=== PATIENT | female | born 1985 | race Caucasian/White ===

== ENCOUNTER 2023-07-21 22:08 | Emergency (ER) | payer OTHER, SELFPAY ==
[2023-07-21 22:13] VITALS: BP 152/99; PULSE 86; TEMP 36.6; O2SAT 98; BMI 38.3
--- NOTE | 2023-07-21 22:30 | ED.PSYCH1 ---
HPI - Psych General Chief Complaint: Psychiatric Symptoms Stated Complaint: SI Time Seen by Provider: 07/21/23 22:20 Source: Reports patient Mode of arrival: walk-in Limitations: Reports no limitations History of Present Illness HPI Narrative: past history of depression. No support at home. Suicidal tonight. plan to either shoot herself or overdose on pills. States she called tonight before she harmed herself. Drove herself to the ER MD complaint: suicidal ideation Related Data Home Medications ?Medication ?Instructions ?Recorded ?Confirmed clonazepam 1 mg tablet mg 07/21/23 escitalopram oxalate 20 mg tablet mg 07/21/23 lamotrigine 150 mg tablet mg 07/21/23 lamotrigine 200 mg tablet mg 07/21/23 quetiapine 400 mg tablet mg 07/21/23 quetiapine 50 mg tablet mg 07/21/23 Allergies Allergy/AdvReac Type Severity Reaction Status Date / Time amoxicillin [From Augmentin] Allergy Mild Rash Verified 07/21/23 22:21 clavulanic acid Allergy Mild Rash Verified 07/21/23 22:21 [From Augmentin] Review of Systems ROS Status of ROS 10 or more systems reviewed and unremarkable except as noted in history and below Exam Constitutional Vital Signs, click to edit/add: Last Vital Signs Temp 98 F 07/22/23 04:45 Pulse 72 07/22/23 04:45 Resp 15 07/22/23 04:45 BP 142/80 H 07/22/23 04:45 Pulse Ox 98 07/22/23 04:45 O2 Del Method Room Air 07/21/23 22:13 Common normals: no apparent distress, average body habitus, oriented x3, no limitations, healthy appearing, alert and well nourished [facility] Common normals: normocephalic and head/scalp atraumatic Eye Common normals: PERRL, EOMs intact bilaterally and conjunctivae normal Respiratory Common normals: normal respiratory effort, no retractions, no use of accessory muscles and clear to auscultation bilaterally Cardio Common normals: regular rate, regular rhythm and S1 normal heart sound GI Common normals: Normal to inspection, nondistended, normoactive bowel sounds present, soft to palpation and non-tender Extremity Common normals: normal to inspection and full ROM Neuro Common normals: oriented x3, CN's II-XII intact bilaterally, moves all extremities and no focal motor deficits Psych Appearance: grossly normal Course Vital Signs Vital signs: Vital Signs Temperature 97.8 F 07/21/23 22:13 Pulse Rate 86 07/21/23 22:13 Respiratory Rate 18 07/21/23 22:13 Blood Pressure 152/99 H 07/21/23 22:13 Pulse Oximetry 98 07/21/23 22:13 Oxygen Delivery Method Room Air 07/21/23 22:13 Temperature 98 F 07/22/23 04:45 Pulse Rate 72 07/22/23 04:45 Respiratory Rate 15 07/22/23 04:45 Blood Pressure 142/80 H 07/22/23 04:45 Pulse Oximetry 98 07/22/23 04:45 Oxygen Delivery Method Room Air 07/21/23 22:13 MDM - Psych MDM Narrative Medical decision making narrative: patient presents with suicidal ideation of either overdosing on pills or shooting herself with a gun. Volunteering for admission. Was released from inpatient psychiatry last week but does not feel she is any better and apparently does not have support system at home. Denies any attempt to harm herself before driving herself to the hospital. Labs reveal mild renal insufficiency . has elevated WBC at 14 but no sign of infection and she is afebrile with normal vital signs. Discussed with psychiatrist and patient accepted and waiting for a bed Lab Data Labs: Lab Results 07/21/23 07/21/23 Range/Units 22:42 23:05 WBC 14.1 H (4.0-11.0) 10^3/uL RBC 4.17 L (4.20-5.40) 10^6/uL Hgb 12.2 (12.0-16.0) g/dL Hct 37.6 (36.0-48.0) % MCV 90.2 (81.0-99.0) fL MCH 29.3 (26.7-34.0) pg MCHC 32.4 (29.9-35.2) g/dL RDW 13.5 (11.0-15.0) % Plt Count 257 (150-450) 10^3/uL MPV 10.4 (9.5-13.5) fL Neut % (Auto) 70.2 (43.0-75.0) % Lymph % (Auto) 22.1 (20.5-60.0) % [place] % (Auto) 4.1 (1.7-12.0) % Eos % (Auto) 2.2 (0.9-7.0) % Baso % (Auto) 0.6 (0.2-2.0) % Neut # (Auto) 9.9 H (1.4-6.5) 10^3/uL Lymph # (Auto) 3.1 (1.2-3.8) 10^3/uL [place] # (Auto) 0.6 (0.3-0.8) 10^3/uL Eos # (Auto) 0.3 (0.0-0.7) 10^3/uL Baso # (Auto) 0.1 (0.0-0.1) 10^3/uL Abs Immat Gran (auto) 0.11 H (0.00-0.03) 10^3/uL Imm/Tot Granulo (auto) 0.8 H (0.0-0.5) % Sodium 136 (136-145) mmol/L Potassium 3.5 (3.5-5.1) mmol/L Chloride 101 (98-107) mmol/L Carbon Dioxide 25.2 (21.0-32.0) mmol/L Anion Gap 13.3 BUN 15.0 (7.0-18.0) mg/dL Creatinine 1.28 H (0.55-1.02) mg/dL Est GFR ( Amer) 57 L (>=60) Est GFR (Non-Af Amer) 47 L (>=60) BUN/Creatinine Ratio 11.7 Glucose 126 H (74-106) mg/dL Calcium 8.6 (8.5-10.1) mg/dL Total Bilirubin 0.2 (0.2-1.0) mg/dL AST 14 L (15-37) U/L ALT 24 (14-59) U/L Alkaline Phosphatase 77 (46-116) U/L Total Protein 7.1 (6.4-8.2) g/dL Albumin 3.4 (3.4-5.0) g/dL Globulin 3.7 g/dL Albumin/Globulin Ratio 0.9 Urine HCG, Qual Negative (NEGATIVE) Salicylates <2.8 (<=19.9) mg/dL Urine Opiates Screen Negative (NEGATIVE) Ur Buprenorphine Scrn Negative (NEGATIVE) Ur Oxycodone Screen Negative (NEGATIVE) Urine Methadone Screen Negative (NEGATIVE) Acetaminophen <2.0 L (10.0-30.0) ug/mL Ur Barbiturates Screen Negative (NEGATIVE) U Tricyclic Antidepress Positive A (NEGATIVE) Ur Phencyclidine Scrn Negative (NEGATIVE) Ur Amphetamines Screen Negative (NEGATIVE) U Methamphetamines Scrn Negative (NEGATIVE) U Benzodiazepines Scrn Negative (NEGATIVE) Urine Cocaine Screen Negative (NEGATIVE) U Cannabinoids Screen Negative (NEGATIVE) Ethanol Quant <3 mg/dL Discharge Plan Discharge Chief Complaint: Psychiatric Symptoms Clinical Impression: Suicidal ideation Patient Disposition: [facility]
[2023-07-21 22:36] VITALS: PULSE 91
--- NOTE | 2023-07-21 22:37 | ECG_ITS ---
[facility] Test Date: 2023-07-21 Pat Name: OTILIO MATAMOROS Department: Room: - Gender: Female [employer]ocation Commissioner: : [id number] Requested By: Order Number: [id number] Reading MD: YEE ARVIZU Measurements Intervals [place] Rate: 89 P: 54 MN: 144 QRS: 50 QRSD: 94 T: 53 QT: 364 QTc: 410 Interpretive Statements 1100 Sinus rhythm 1570 with occasional ventricular premature complexes 8102 Low QRS voltage in chest leads 9140 abnormal rhythm ECG No previous ECG available for comparison Electronically Signed On 07-22-2023 6:54:33 EDT by YEE ARVIZU
[2023-07-21 22:39] VITALS: PULSE 85
[2023-07-21 22:51] LABS: Basophils Absolute Auto 0.1 10^3/uL (0.0-0.1); Basophils Percent Auto 0.6 % (0.2-2.0); Eosinophils Absolute Auto 0.3 10^3/uL (0.0-0.7); Eosinophils Percent Auto 2.2 % (0.9-7.0); Hematocrit 37.6 % (36.0-48.0); Hemoglobin 12.2 g/dL (12.0-16.0); Immature Granulocytes Abs Auto 0.11 10^3/uL (0.00-0.03); Immature Granulocytes Pct Auto 0.8 % (0.0-0.5); Lymphocytes Absolute Auto 3.1 10^3/uL (1.2-3.8); Lymphocytes Percent Auto 22.1 % (20.5-60.0); Mean Corpuscular HGB Conc 32.4 g/dL (29.9-35.2); Mean Corpuscular Hemoglobin 29.3 pg (26.7-34.0); Mean Corpuscular Volume 90.2 fL (81.0-99.0); Mean Platelet Volume 10.4 fL (9.5-13.5); Monocytes Absolute Auto 0.6 10^3/uL (0.3-0.8); Monocytes Percent Auto 4.1 % (1.7-12.0); Neutrophils Absolute Auto 9.9 10^3/uL (1.4-6.5); Neutrophils Percent Auto 70.2 % (43.0-75.0); Platelet Count 257 10^3/uL (150-450); Red Blood Count 4.17 10^6/uL (4.20-5.40); Red Cell Distribution Width 13.5 % (11.0-15.0); White Blood Count 14.1 10^3/uL (4.0-11.0)
[2023-07-21 23:13] LABS: Alanine Aminotransferase 24 U/L (14-59); Albumin Globulin Ratio 0.9; Albumin Level 3.4 g/dL (3.4-5.0); Alkaline Phosphatase 77 U/L (46-116); Anion Gap 13.3; Aspartate Amino Transferase 14 U/L (15-37); BUN Creatinine Ratio 11.7; Bilirubin Total 0.2 mg/dL (0.2-1.0); Calcium 8.6 mg/dL (8.5-10.1); Carbon Dioxide 25.2 mmol/L (21.0-32.0); Chloride 101 mmol/L (98-107); Estimated GFR (African America 57 (>=60); Estimated GFR (Non-African Ame 47 (>=60); Ethanol <3 mg/dL; Globulin 3.7 g/dL; Glucose 126 mg/dL (74-106); Potassium 3.5 mmol/L (3.5-5.1); Salicylate <2.8 mg/dL (<=19.9); Sodium 136 mmol/L (136-145); Total Protein 7.1 g/dL (6.4-8.2)
[2023-07-21 23:15] LABS: HCG Qualitative Urine* NEGATIVE (NEGATIVE)
[2023-07-21 23:23] LABS: Acetaminophen <2.0 ug/mL (10.0-30.0)
[2023-07-21 23:24] LABS: Amphetamine Screen Urine NEGATIVE (NEGATIVE); Barbiturates Screen Urine NEGATIVE (NEGATIVE); Benzodiazepines Screen Urine NEGATIVE (NEGATIVE); Buprenorphine Screen Urine NEGATIVE (NEGATIVE); Cannabinoid Screen Urine NEGATIVE (NEGATIVE); Cocaine Screen Urine NEGATIVE (NEGATIVE); Methadone Screen Urine NEGATIVE (NEGATIVE); Methamphetamines Screen Urine NEGATIVE (NEGATIVE); Opiate Screen Urine NEGATIVE (NEGATIVE); Oxycodone Screen Urine NEGATIVE (NEGATIVE); Phencyclidine Screen Urine NEGATIVE (NEGATIVE); Tricyclic Antidepressant Urine POSITIVE (NEGATIVE)
[2023-07-22] MEDS: HYDROXYZINE HCL 25 MG TABLET 50 MG PO (00:32)
[2023-07-22 02:00] VITALS: BP 138/90; PULSE 88; O2SAT 98
[2023-07-22 04:45] VITALS: BP 142/80; PULSE 72; TEMP 36.6; O2SAT 98
[2023-07-22 07:39] VITALS: BP 123/82; PULSE 81; O2SAT 96
[2023-07-22 08:30] VITALS: BP 126/78; PULSE 78; O2SAT 98
== END 2023-07-22 09:35 ==
PROVIDERS: Emergency Provider Internal Medicine; Family Provider Family Medicine; PCP Family Medicine
DX: R45.851 Suicidal ideations (principal); Z79.899 Other long term (current) drug therapy
CPT/HCPCS: 36415; 80053; 80179; 80307; 80320; 80329; 84703; 85025; 93005; 99285